=== PATIENT | male | born 1960 | race Caucasian/White ===

== ENCOUNTER 2024-03-22 09:36 | Day surgery (SDC) | payer BC, SELFPAY ==
[2024-03-22 09:56] VITALS: BMI 33.2
[2024-03-22] MEDS: sodium chloride 0.9% 500 ML 15 ML IV (10:11)
[2024-03-22 10:12] VITALS: BP 148/81; PULSE 69; RESP 16; TEMP 36.2; O2SAT 96
--- NOTE | 2024-03-22 10:29 | ANES.PREANE2 ---
Pre-Anesthetic Assessment Height/Weight: Height 1.75 m Weight 102.058 kg Temp Pulse Resp BP Pulse Ox O2 Del Method 97.2 F L 69 16 148/81 96 Room Air 03/22/24 10:12 03/22/24 10:12 03/22/24 10:12 03/22/24 10:12 03/22/24 10:12 03/22/24 10:12 Preop Diagnosis: History of colon polyps Operation Date: 03/22/24 10:45 Proposed Procedures p Colonoscopy 34296, G0121, z12.11(Not Applicable) - Saeid Reeder MD Familial anesthetic complications: none Was Clonidine taken within 24 hours: N/A Last intake: Intake Last Liquid Date 03/21/24 Last Liquid Time 23:30 Last Solid Date 03/20/24 Last Solid Time 23:30 Social No alcohol and No tobacco Exam alert, oriented x 3, clear to auscultation bilaterally and regular rate & rhythm Airway Submandibular: within normal limits and Other (Short thick neck) Cervical ROM: within normal limits Mallampati: Class III Comments: Comments: intact Pulmonary None reported CV/HEM PSVT s/p intervention, controlled with BB. HTN, HLD None reported Hepatic None reported GI None reported Metabolic None reported Musc/skel None reported Neuropsych None reported Anesthetic Plan ASA status: 2 Anesthesia: MAC Risk of > 500 ml blood loss (7ml/kg in children): No Medications/Allergies Home Medications ?Medication ?Instructions ?Recorded ?Confirmed ?Last Taken ?Type atorvastatin 10 mg tablet 10 mg PO DAILY 01/05/24 03/22/24 03/21/24 History chlorthalidone 25 mg tablet 25 mg PO DAILY 01/05/24 03/22/24 03/21/24 History lisinopril 20 mg tablet 20 mg PO DAILY 01/05/24 03/22/24 03/21/24 History metoprolol tartrate 25 mg tablet 25 mg PO BID 01/05/24 03/22/24 03/22/24 History sildenafil 100 mg tablet 100 mg PO DAILY PRN sexual 01/05/24 03/22/24 Unknown Rx activity #6 tabs Allergies Allergy/AdvReac Type Severity Reaction Status Date / Time No Known Allergies Allergy Unverified 03/17/24 08:20 Current Medications Generic Name Dose Route Start Last Admin Trade Name Freq PRN Reason Stop Dose Admin Sodium Chloride 500 mls @ 15 mls/hr 03/22/24 09:51 03/22/24 10:11 Sodium Chloride 0.9% IV 03/23/24 09:50 15 mls/hr .Q24H PRN Administration COLONOSCOPY FLUIDS PFSH Anesthesia Medical History Hx of colonic polyps Screening for colorectal cancer Erectile dysfunction High cholesterol HTN (hypertension) with goal to be determined PSVT (paroxysmal supraventricular tachycardia) sees [facility] Surgical History Hx of tonsillectomy Family History Father Diabetes mellitus, type 2 Mother Hypertension Social History Smoking and tobacco/nicotine status: never used tobacco/nicotine Alcohol intake: current Alcohol intake frequency: 3 or more drinks per day Alcohol type: beer and hard liquor Substance/Drug Use: current Substance/Drug use frequency: Special occassions/opportunity only Household members: none Marital status: / Number of children: 2 Highest education level completed: Associate Degree: Occupational, Technical, Vocational Program Current occupational status: retired 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
--- NOTE | 2024-03-22 11:06 | W.PM.OPSFHP ---
Same Day Surgery H&P Indication for Procedure/HPI DATE OF PROCEDURE: March 22, 2024 CHIEF COMPLAINT/INDICATIONFOR SURGICAL PROCEDURE: screening colonoscopy PREOP DIAGNOSIS: screening colonoscopy PLANNED PROCEDURE: Operation Date: 03/22/24 10:45 Proposed Procedures p Colonoscopy 07813, G0121, z12.11(Not Applicable) - Saeid Reeder MD Medications/Allergies* Home Medications ?Medication ?Instructions ?Recorded ?Confirmed ?Type atorvastatin 10 mg tablet 10 mg PO DAILY 01/05/24 03/22/24 History chlorthalidone 25 mg tablet 25 mg PO DAILY 01/05/24 03/22/24 History lisinopril 20 mg tablet 20 mg PO DAILY 01/05/24 03/22/24 History metoprolol tartrate 25 mg tablet 25 mg PO BID 01/05/24 03/22/24 History Allergies/Adverse Reactions Allergy/AdvReac Type Severity Reaction Status Date / Time No Known Allergies Allergy Unverified 03/17/24 08:20 Current Medications: Generic Name Dose Route Start Last Admin Trade Name Freq PRN Reason Stop Dose Admin Sodium Chloride 500 mls @ 15 mls/hr 03/22/24 09:51 03/22/24 10:11 Sodium Chloride 0.9% IV 03/23/24 09:50 15 mls/hr .Q24H PRN Administration COLONOSCOPY FLUIDS Pertinent History/Comorbid Conditions* Medical History (Updated 01/05/24 @ 11:37 by Nava Solano MD) Hx of colonic polyps Screening for colorectal cancer Erectile dysfunction High cholesterol HTN (hypertension) with goal to be determined PSVT (paroxysmal supraventricular tachycardia) sees [facility] Surgical History (Updated 01/05/24 @ 10:40 by Nava Solano MD) Hx of tonsillectomy Family History (Updated 01/05/24 @ 10:43 by Nava Solano MD) Diabetes mellitus, type 2 Father Hypertension Mother Social History Smoking and tobacco/nicotine status: never used tobacco/nicotine Alcohol intake: current Alcohol intake frequency: 3 or more drinks per day Alcohol type: beer and hard liquor Substance/Drug Use: current Substance/Drug use frequency: Special occassions/opportunity only Household members: none Marital status: / Number of children: 2 Highest education level completed: Associate Degree: Occupational, Technical, Vocational Program Current occupational status: retired 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
[2024-03-22 11:31] VITALS: BP 124/72; PULSE 74; RESP 18; TEMP 36.1; O2SAT 97
[2024-03-22 11:45] VITALS: BP 133/69; PULSE 65; RESP 18; O2SAT 99
[2024-03-22 11:55] VITALS: BP 144/78; PULSE 64; RESP 18; O2SAT 98
[2024-03-22 12:00] VITALS: BP 146/81; PULSE 69; RESP 18; O2SAT 98
--- NOTE | 2024-03-22 12:08 | ANE.PACU2 ---
Inpatient post-anesthesia follow up: Airway intact: Yes Vital signs: Temperature 97.0 F Pulse Rate 69 Respiratory Rate 18 Blood Pressure 146/81 Pulse Oximetry 98 Oxygen Delivery Me thod Room Air Oxygen Flow Rate Fraction of Inspir ed Oxygen Hydration adequate: Yes Nausea and vomiting: No Pain level: 1 Mental status: Baseline
== END 2024-03-22 12:08 | disposition home or self-care (01) ==
PROVIDERS: PCP Family Medicine; Visit Provider Student in an Organized Health Care Education/Training Program
PROC: 0DJD8ZZ Inspection of Lower Intestinal Tract, Via Natural or Artificial Opening Endoscopic (ICD-10-PCS; CPT 45378; principal; 2024-03-22 10:45)
DX: Z12.11 Encounter for screening for malignant neoplasm of colon (principal); D12.5 Benign neoplasm of sigmoid colon; K52.9 Noninfective gastroenteritis and colitis, unspecified; I10 Essential (primary) hypertension; E78.5 Hyperlipidemia, unspecified; Z79.899 Other long term (current) drug therapy; Z86.0100 Personal history of colon polyps, unspecified; E78.00 Pure hypercholesterolemia, unspecified
CPT/HCPCS: 45380; 88305; J2704; J7040

== ENCOUNTER 2024-04-12 10:39 | Outpatient (CLI) | payer BC, SELFPAY ==
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
== END 2024-04-12 10:40 | disposition home or self-care (01) ==
PROVIDERS: PCP Family Medicine; Visit Provider Family Medicine
DX: M19.012 Primary osteoarthritis, left shoulder (principal); M75.42 Impingement syndrome of left shoulder; M77.8 Other enthesopathies, not elsewhere classified
CPT/HCPCS: 73030; 80053; 80061; 84443; 85025; G0103

== ENCOUNTER 2024-04-28 10:45 | Outpatient (CLI) | payer BC, SELFPAY ==
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
== END 2024-04-28 10:46 | disposition home or self-care (01) ==
LOC: RAD 10:48
PROVIDERS: PCP Family Medicine; Visit Provider Family Medicine
DX: M75.42 Impingement syndrome of left shoulder (principal); S46.812A Strain of other muscles, fascia and tendons at shoulder and upper arm level, left arm, initial encounter; X58.XXXA Exposure to other specified factors, initial encounter; M62.542 Muscle wasting and atrophy, not elsewhere classified, left hand; R93.6 Abnormal findings on diagnostic imaging of limbs; M19.012 Primary osteoarthritis, left shoulder; M77.8 Other enthesopathies, not elsewhere classified
CPT/HCPCS: 73221

== ENCOUNTER → 2024-11-10 10:24 | Outpatient (BNVA) | payer MEDICARE, SELFPAY | PROVIDERS: PCP Family Medicine; Visit Provider Nurse Practitioner Family | DX: L81.4 Other melanin hyperpigmentation (principal); L57.8 Other skin changes due to chronic exposure to nonionizing radiation; L82.1 Other seborrheic keratosis; L56.8 Other specified acute skin changes due to ultraviolet radiation; L57.0 Actinic keratosis | CPT/HCPCS: 17000; 17110; 99213 ==